=== PATIENT | male | born 1985 | race Caucasian/White ===

== ENCOUNTER 2018-02-13 03:37 | Inpatient (IN) | payer SELFPAY ==
[~2018-02-13] VITALS: Ht 182.9 cm; Wt 114.8 kg
[2018-02-13 03:40] VITALS: BP 138/59
[2018-02-13] MEDS ORDERED: ZIPRASIDONE MESYLATE 20 MG/ML VIAL IM ONE (04:05)
[2018-02-13] MEDS ORDERED: LORazepam 2 MG/ML VIAL IM ONE (04:05)
[2018-02-13] MEDS ORDERED: WATER STERILE 10 ML MC ONE (04:17)
[2018-02-13 04:42] LABS: BASOPHILS # (AUTO) 0.1 K/uL (0.00-0.22); BASOPHILS % (AUTO) 0.8 % (0.0-2.0); EOSINOPHILS # (AUTO) 0.1 K/uL (0-0.4); HEMATOCRIT 38.9 % (36-52); HEMOGLOBIN 13.4 g/dL (12.0-18.0); LYMPHOCYTES # (AUTO) 2.4 K/uL (2.0-11.5); LYMPHOCYTES % (AUTO) 20.2 % (20.5-51.1); MEAN CORPUSCULAR HEMOGLOBIN 30 pg (27-31); MEAN CORPUSCULAR HGB CONC 34 g/dL (33-37); MONOCYTES % (AUTO) 8.9 % (1.7-9.3); NEUTROPHILS # (AUTO) 8.2 K/uL (1.8-7.7); NEUTROPHILS % (AUTO) 69.1 % (42.2-75.2); PLATELET COUNT (AUTO) 200 K/uL (140-450); RED BLOOD CELL COUNT(AUTO) 4.53 MIL/uL (4.20-6.10); RED CELL DISTRIBUTION WIDTH 14.1 % (11.6-13.7); WHITE BLOOD COUNT (AUTO) 11.8 K/uL (4.8-10.8)
[2018-02-13 05:02] LABS: ANION GAP 11.2 (8-16); CARBON DIOXIDE 27.2 mmol/L (21-32); CHLORIDE 104 mmol/L (98-107); GFR ARICAN-AMERICAN 111 mL/min (>90); GLUCOSE 90 mg/dL (74-106); POTASSIUM 3.4 mmol/L (3.5-5.1); SODIUM SERUM 139 mmol/L (136-145); UREA NITROGEN, BLOOD 23 mg/dL (7-18)
[2018-02-13 05:03] LABS: ACETAMINOPHEN < 0.5 ug/ml (10-30); ALBUMIN 4.1 g/dL (3.4-5.0); ASPARTATE AMINOTRANSFERASE 45 U/L (15-37); SALICYLATE < 2.8 mg/dL (2.8-20.0)
[2018-02-13 05:29] LABS: BARBITURATE, URINE NEG. ng/ml (NEG <=200); BENZODIAZEPINE, URINE NEG. ng/mL (NEG <=200); CANNABINOID, URINE NEG. ng/mL (NEG <=50); COCAINE, URINE NEG. ng/mL (NEG <=300); OPIATE, URINE NEG. ng/mL (NEG <=2000); PHENCYCLIDINE SCREEN,URINE NEG. ng/mL (NEG <=25)
[2018-02-13] MEDS ORDERED: DOCUSATE SODIUM 100 MG GELCAP PO PRN (13:45)
[2018-02-13] MEDS ORDERED: HYDROcodone/APAP 5/325 MG 1 TAB TAB PO PRN (13:45)
[2018-02-13] MEDS ORDERED: ONDANSETRON 4 MG/2 ML VIAL IM/IVP PRN (13:45)
[2018-02-13] MEDS ORDERED: ACETAMINOPHEN 325 MG TAB PO PRN (13:45)
[2018-02-13] MEDS ORDERED: LORazepam 2 MG/ML VIAL IM/IVP PRN (13:45)
[2018-02-13] MEDS ORDERED: MORPHINE SULFATE 4 MG/ML SYR IVP PRN (13:45)
[2018-02-13] MEDS ORDERED: ZOLPIDEM 5 MG TAB PO PRN (13:45)
[2018-02-13 14:12] LABS: PROTHROMBIN TIME 10.9 secs (10.8-13.4)
[2018-02-13 14:22] LABS: MAGNESIUM 1.8 mg/dL (1.8-2.4); THYROID STIMULATING HORMONE 4.28 uIU/mL (0.34-3.74)
[2018-02-13 14:46] LABS: APPEARANCE,URINE CLEAR (CLEAR); BILIRUBIN,URINE NEGATIVE (NEGATIVE); BLOOD, URINE NEGATIVE (NEGATIVE); COLOR,URINE YELLOW (YELLOW); LEUKOCYTE ESTERASE ,URINE NEGATIVE (NEGATIVE); NITRITE, URINE NEGATIVE (NEGATIVE); UGLUCOSE NEGATIVE (NEGATIVE)
[2018-02-13] MEDS ORDERED: LORazepam 1 MG TAB PO PRN (15:50)
[2018-02-13] MEDS ORDERED: LORazepam 1 MG TAB PO SCH (16:00)
[2018-02-13 17:45] VITALS: BP 95/59
[2018-02-13] MEDS: QUEtiapine FUMARATE 25 MG TAB PO SCH (20:34)
[2018-02-13] MEDS: LOSARTAN 50 MG TAB PO SCH (21:00)
[2018-02-13 23:30] VITALS: BP 106/41
[2018-02-14 08:00] VITALS: BP 109/65
[2018-02-14] MEDS: LOSARTAN 50 MG TAB PO SCH ×2 (08:30→21:00)
[2018-02-14] MEDS: QUEtiapine FUMARATE 25 MG TAB PO SCH ×2 (08:30→21:48)
[2018-02-14 10:17] LABS: BASOPHILS # (AUTO) 0.1 K/uL (0.00-0.22); EOSINOPHILS # (AUTO) 0.3 K/uL (0-0.4); HEMATOCRIT 38.8 % (36-52); HEMOGLOBIN 13.2 g/dL (12.0-18.0); LYMPHOCYTES # (AUTO) 1.4 K/uL (2.0-11.5); LYMPHOCYTES % (AUTO) 21.4 % (20.5-51.1); MEAN CORPUSCULAR HEMOGLOBIN 29 pg (27-31); MEAN CORPUSCULAR HGB CONC 34 g/dL (33-37); MEAN CORPUSCULAR VOLUME 86.2 fL (80-94); MONOCYTES # (AUTO) 0.5 K/uL (0.8-1.0); MONOCYTES % (AUTO) 7.9 % (1.7-9.3); NEUTROPHILS # (AUTO) 4.2 K/uL (1.8-7.7); NEUTROPHILS % (AUTO) 65.7 % (42.2-75.2); PLATELET COUNT (AUTO) 179 K/uL (140-450); RED CELL DISTRIBUTION WIDTH 14.1 % (11.6-13.7); WHITE BLOOD COUNT (AUTO) 6.4 K/uL (4.8-10.8)
[2018-02-14 10:52] LABS: ANION GAP 12.2 (8-16); CARBON DIOXIDE 27.7 mmol/L (21-32); CREATININE 0.9 mg/dL (0.7-1.3); POTASSIUM 3.9 mmol/L (3.5-5.1)
[2018-02-14 12:00] VITALS: BP 126/69
[2018-02-15] VITALS: BP 93/42
[2018-02-15] MEDS: QUEtiapine FUMARATE 25 MG TAB PO SCH (09:00)
[2018-02-15] MEDS: LOSARTAN 50 MG TAB PO SCH (09:00)
[2018-02-15] MEDS ORDERED: INFLUENZA VIRUS VACCINE QUAD 0.5 ML SYR IMVAC PRN (09:50)
== END 2018-02-15 10:00 | disposition home or self-care (01) | DRG 917 ==
LOC: MED 03:37 → MTU 13:31 → MED 14:37
PROVIDERS: ADMIT General Practice; ATTEND General Practice
DX: T43.621A Poisoning by amphetamines, accidental (unintentional), initial encounter (principal); G92 Toxic encephalopathy; F15.90 Other stimulant use, unspecified, uncomplicated; F39 Unspecified mood [affective] disorder; I10 Essential (primary) hypertension; F20.9 Schizophrenia, unspecified; F90.9 Attention-deficit hyperactivity disorder, unspecified type; E02 Subclinical iodine-deficiency hypothyroidism; D72.829 Elevated white blood cell count, unspecified; F43.9 Reaction to severe stress, unspecified; F17.210 Nicotine dependence, cigarettes, uncomplicated; Y92.89 Other specified places as the place of occurrence of the external cause; Z91.14 Patient's other noncompliance with medication regimen
CPT/HCPCS: 36415; 71045; 80048; 80053; 80305; 81003; 83036; 83690; 83735; 83880; 84100; 84134; 84443; 84484; 85025; 85610; 85730; 87081; 93005; 96372; 99285; G0480; G0482; J2060; J3486; Q0092